=== PATIENT | male | born 1950 | race Caucasian/White ===

== ENCOUNTER 2017-04-05 05:24 | Inpatient (IN) | payer MEDICARE, OTHER ==
[2017-04-04 10:18] LABS: BASOPHILS 0.3 %; BASOPHILS ABSOLUTE 0.02 10/3/uL (0.0-0.16); EOSINOPHILS 0.7 %; EOSINOPHILS ABSOLUTE 0.04 10/3/uL (0.0-0.53); HEMATOCRIT 42.9 % (40.0-51.0); HEMOGLOBIN 14.5 g/dL (13.6-17.8); IMMATURE GRANULOCYTES 0.2 %; IMMATURE GRANULOCYTES ABSOLUTE 0.01 10/3/uL (0.0-0.11); LYMPHOCYTES 31.3 %; LYMPHOCYTES ABSOLUTE 1.85 10/3/uL (0.67-4.30); MEAN CORPUS HGB CONC 33.8 g/dL (32.0-36.0); MEAN CORPUSCULAR HEMOGLOB 30.4 pg (26.0-34.0); MEAN CORPUSCULAR VOLUME 89.9 fL (80-100); MEAN PLATELET VOLUME 9.7 fL (9.2-13.0); MONOCYTES 6.6 %; MONOCYTES ABSOLUTE 0.39 10/3/uL (0.21-1.20); NEUTROPHILS 60.9 %; NEUTROPHILS ABSOLUTE 3.61 10/3/uL (2.02-8.40); PLATELET COUNT 208 10/3/uL (150-400); RBC DISTRIBUTION WIDTH 12.8 % (12.0-16.0); RED CELL COUNT 4.77 10/6/uL (4.7-6.1); WHITE BLOOD CELLS 5.9 10/3/uL (4.5-10.5)
[2017-04-04 10:19] LABS: MANUAL DIFF NO %
[2017-04-04 10:28] LABS: PARTIAL THROMBO TIME 33.3 SEC (22.5-37.2)
[2017-04-04 10:31] LABS: % IRON SAT 23 % (20-50); A/G RATIO 1.1 (0.7-1.9); ALKALINE PHOSPHATASE 91 U/L (45-117); BUN (BLOOD UREA NITROGEN) 23 MG/DL (6-23); CALCIUM, SERUM 9.2 MG/DL (8.5-10.4); CHLORIDE, SERUM 108 MMOL/L (96-112); CO2 (CARBON DIOXIDE) 28 MMOL/L (24-34); GFR AFRICAN AMERICAN 66 ML/MIN (>=60); GFR NON AFRICAN AMERICAN 57 ML/MIN (>=60); GLOBULIN 3.5 G/DL (2.5-4.1); GLUCOSE, SERUM 105 MG/DL (60-99); IRON BINDING CAPACITY 317 MCG/DL (250-450); IRON, SERUM 72 MCG/DL (35-150); POTASSIUM, SERUM 4.3 MMOL/L (3.5-5.3); SGOT(AST) 11 U/L (5-40); SGPT(ALT) 20 U/L (5-65); SODIUM, SERUM 142 MMOL/L (135-148); TOTAL BILIRUBIN 0.6 MG/DL (0-1.2); TOTAL PROTEIN 7.5 G/DL (6.0-8.5)
[2017-04-04 11:02] LABS: INTERNATIONAL NORMAL RATI 1.1 UNITS (-); PROTIME (NOT ORD) 14.1 SEC (12.0-14.5)
[2017-04-04 11:22] LABS: ASCORBIC ACID (UR NOT ORDER) NEG (NEG); BILIRUBIN, URINE NEGATIVE (NEG); KETONE, URINE NEGATIVE (NEG); LEUKOCYTE ESTERASE(NOT OR NEG (NEG); WBC (NOT ORDERED) (RFLEX) 1 (0-5)
--- NOTE | ~2017-04-05 | DS ---
Discharge Summary [facility] [address] [place]. [address] NAME: FAREED PACHECO : 52 STATUS : DIS IN PAT#: [id number] AGE: 66 ADM/REG DATE : 04/05/17 MR#: [id number] REPORT SERV DATE: 04/19/17 DICTATED BY: ARMANDO PAIGE DATE: 04/19/17 REPORT STATUS : Draft TRANSCRIBED BY: MODChina DATE: 04/19/17 Data Collection from hospitalization DISCHARGE DIAGNOSES: 1. Aortic valve replacement due to aortic valve stenosis - critical. 2. Hypertension. 3. Hyperlipidemia. 4. History of cat scratch fever. 5. Former smoker. 6. Nonobstructive coronary artery disease. CONSULTATIONS: Jairo Coleman M.D. PROCEDURES PERFORMED: Aortic valve replacement with a 23 mm pericardial tissue valve, Camarena type, with extensive debridement of aortic anulus and plaque extending onto the anterior leaflet of the mitral valve, also transesophageal echocardiography on 04/05/2017. PATHOLOGY: Aortic valve leaflets valvulectomy - marked fibrosis with ectopic calcification (history of aortic stenosis). MEDICATIONS: Aspirin 81 mg daily, Lipitor 10 mg daily, Coreg 6.25 mg twice a day, [place] 5/325 one to two tablets every six hours as needed, Coumadin 3 mg every day at bedtime. CONDITION AT DISCHARGE: Stable. DISPOSITION: The patient was discharged home on a low-cholesterol, low-sodium, 1800-calorie cardiac/diabetic diet with activities as instructed. He would follow up with Dr. Jairo Coleman on 05/03/2017 and would follow up with co 05/08/2017. He would follow up in the [facility] Coumad[facility] 04/12/2017, and at cardiac rehab 05/17/2017. HOSPITAL COURSE: This is a 66-year-old man who had been referred by Dr. Jairo Coleman with known aortic valve stenosis becoming progressively worse and becoming progressively more symptomatic. Cardiac catheterization had demonstrated normal coronary arteries. Treatment options were discussed and it was elected to proceed with surgical intervention. He was admitted to the hospital at this time for further evaluation and treatment. Upon admission, he was taken to the operating room where he underwent the above-mentioned procedure. He tolerated this well. There were no complications. On postop day #1, he was seen by Dr. Jairo Coleman. He had some pleuritic pain and some gas pain. He had no edema. He has no shortness of breath. He was off all pressors, low-dose Coreg was going to be given. Statin and aspirin were continued. He would be placed on Coumadin for three months. His wounds looked okay. On the , his gastric issues had resolved. He had no complaints. Chest tubes and pacing wires were removed. He was transferred to the floor. INR level was 1.4. Coumadin was started. He remained in a sinus rhythm. The next day, discharge planning was performed. Creatinine level was 1.11, INR level was 1.4. He continued to do well. On 04/09/2017, he had no complaints. INR level was 1.7. He had no dyspnea or chest pain. He was in a sinus rhythm. Discharge instructions were given. Due to his improved and stable condition, he was discharged home with the above-stated Discharge Summary [address] [address] NAME: FAREED PACHECO : 52 STATUS : DIS IN PAT#: [id number] AGE: 66 ADM/REG DATE : 04/05/17 MR#: [id number] REPORT SERV DATE: 04/19/17 DICTATED BY: ARMANDO PAIGE DATE: 04/19/17 REPORT STATUS : Draft TRANSCRIBED BY: TRINIDAD DATE: 04/19/17 instructions. Information collected by: Maricruz Lovelace I submit the above information as my discharge summary. SEBASTIAN/TRINIDAD Armando Paige M.D. / [id number] CC: Irene Domingo M.D. Punit Tiku Bhutwala, M.D.
--- NOTE | ~2017-04-05 | OP ---
Record Of Operation [facility] [address] [place]. [address] NAME: FAREED PACHECO : 52 STATUS : ADM IN [facility]#: [id number] AGE: 66 ADM/REG DATE : 04/05/17 MR#: [id number] REPORT SERV DATE: 04/05/17 DICTATED BY: ARMANDO PAIGE DATE: 04/05/17 REPORT STATUS : Draft TRANSCRIBED BY: MODL DATE: 04/05/17 DATE OF PROCEDURE: 04/05/2017 PREOPERATIVE DIAGNOSIS: Critical aortic valve stenosis with normal coronary arteries and symptoms of congestive heart failure. POSTOPERATIVE DIAGNOSIS: Critical aortic valve stenosis with normal coronary arteries and symptoms of congestive heart failure. OPERATIVE PROCEDURE: Aortic valve replacement with a 23 mm pericardial tissue valve, Camarena type with extensive debridement of the aortic annulus and plaque extending onto the anterior leaflet of the mitral valve, also transesophageal echocardiography. OPERATIVE SURGEON: Armando Paige M.D. ANESTHESIA: General endotracheal anesthesia, AA. Chest tubes placed were two. Pacing wires, two on the right ventricle and two on the right atrium. PERTINENT HISTORY: The patient is a 66-year-old gentleman, referred by Dr. Jairo Coleman with known aortic valve stenosis, becoming progressively worse and becoming progressively more symptomatic. Cardiac catheterization had demonstrated normal coronary arteries. OPERATIVE FINDINGS: The patient did have a heavily calcified trileaflet postrheumatic aortic valve with stenosis and insufficiency. There was also extension of the calcification onto the anterior leaflet of the mitral valve. DESCRIPTION OF OPERATIVE PROCEDURE: The patient was taken to the operating room and placed in supine position. Anesthesia was obtained. The patient was prepped and draped in usual fashion. A transesophageal echocardiogram was performed, demonstrating the critical aortic stenosis. Only, mild mitral insufficiency was noted. A midline sternotomy incision was made. Sternum was divided. Heparin was infused. The patient was started on cardiopulmonary bypass. Left ventricular vent was placed for the right superior pulmonary vein. Retrograde and antegrade cardioplegic cannulas were placed. Cross-clamp was applied. Cardioplegia was infused in antegrade and retrograde fashion over a period of 15 minutes. A dmreet-lnhyl-ohcfaj aortotomy was then made, and the aortic valve was examined and found to be postrheumatic, trileaflet, heavily calcified. The valve was excised, and meticulous dissection was required to remove all the calcium and plaque from the aortic annulus. A sheet of calcium was then endarterectomized, removing it off the ventricular surface of the anterior leaflet of the mitral valve. A 23 mm sizer fit within the annulus of the aorta. 2 0 Ethibond pledgeted sutures were placed on the aortic valve annulus with the pledgets on the left ventricular side. These were passed through the sewing ring of a 23 mm pericardial tissue valve, Camarena type. The valve was seated on the annulus, and all sutures were tied with Cor-Knot. Aortotomy was closed in usual single-layered fashion with running 4-0 Prolene suture. Air was removed from left ventricle. Cross-clamp was removed. Good Record Of Operation [place] [id number] [facility] [place]. [address] NAME: FAREED PACHECO : 52 STATUS : ADM IN [facility]#: [id number] AGE: 66 ADM/REG DATE : 04/05/17 MR#: [id number] REPORT SERV DATE: 04/05/17 DICTATED BY: ARMANDO PAIGE DATE: 04/05/17 REPORT STATUS : Draft TRANSCRIBED BY: TRINIDAD DATE: 04/05/17 hemostasis was noted. Two pacing wires on the right ventricle and two on the right atrium and two chest tubes were placed. The patient was warmed to 36 centigrade, maintained a sinus rhythm. He was weaned from cardiopulmonary bypass with mild inotropic support. Protamine sulfate was infused. Hemostasis was adequate. Transesophageal echocardiogram was performed, demonstrating no further mitral insufficiency and normal function of the prosthetic aortic valve. The sternum was closed with four sternal cables. Soft tissue was closed in a manner as stated above. The patient tolerated the procedure well and taken back to the ICU in stable condition. COOKIE/TRINIDAD Armando Paige M.D. / [id number] CC: Armando Paige M.D.
[~2017-04-05 05:24] MED LIST: *DENIES; ASAB PO; LIPITOR10 PO; LORT7 PO
[2017-04-05 12:14] LABS: BE (BASE EXCESS) -4.5 MEQ/L (0 +/- 2.5); CARBOXYHEMOGLOBIN 0.3 % (0-3); HCO3 (ACTUAL BICARBONATE) 21.2 MEQ/L (23-27); HEMOBLOGIN CONTENT 12.1 G/DL (14-18); INSTRUMENT SERIAL # 11843; METHEMOGLOBIN 0.7 % (0-3); MODE SIMV; O2 CONTENT 16.8 VOL% (18-24); OPERATOR ID 32214; PCO2 (CO2 TENSION) 42 MMHG (35-45); PO2 (O2 TENSION) 154 MMHG (79-93); PRESSURE SUPPORT 0 cm.H2O; SAMPLE Arterial; TIDAL VOLUME 700 ML; pH 7.32 (7.37-7.43)
[2017-04-05 12:38] LABS: HEMATOCRIT 32.3 % (40.0-51.0); HEMOGLOBIN 11.2 g/dL (13.6-17.8)
[2017-04-05 12:39] LABS: PLATELET COUNT 134 10/3/uL (150-400)
[2017-04-05 12:48] LABS: INTERNATIONAL NORMAL RATI 1.5 UNITS (-); PARTIAL THROMBO TIME 37.1 SEC (22.5-37.2); PROTIME (NOT ORD) 17.7 SEC (12.0-14.5)
[2017-04-05 12:50] LABS: BUN (BLOOD UREA NITROGEN) 22 MG/DL (6-23); CHLORIDE, SERUM 115 MMOL/L (96-112); CO2 (CARBON DIOXIDE) 25 MMOL/L (24-34); CREATININE 1.18 MG/DL (0.70-1.30); GFR AFRICAN AMERICAN 75 ML/MIN (>=60); GFR NON AFRICAN AMERICAN 64 ML/MIN (>=60); GLUCOSE, SERUM 113 MG/DL (60-99); POTASSIUM, SERUM 4.1 MMOL/L (3.5-5.3); SODIUM, SERUM 148 MMOL/L (135-148)
[2017-04-05 15:15] LABS: BE (BASE EXCESS) -6.2 MEQ/L (0 +/- 2.5); CARBOXYHEMOGLOBIN 0.2 % (0-3); DEVICE NC; HCO3 (ACTUAL BICARBONATE) 18.6 MEQ/L (23-27); INSTRUMENT SERIAL # 11843; METHEMOGLOBIN 0.5 % (0-3); O2 CONTENT 16.7 VOL% (18-24); OPERATOR ID 32214; PCO2 (CO2 TENSION) 35 MMHG (35-45); PO2 (O2 TENSION) 67 MMHG (79-93); SAMPLE Arterial; pH 7.35 (7.37-7.43)
[2017-04-05 18:57] LABS: HEMATOCRIT 34.8 % (40.0-51.0); HEMOGLOBIN 11.9 g/dL (13.6-17.8)
[2017-04-05 19:08] LABS: BUN (BLOOD UREA NITROGEN) 22 MG/DL (6-23); CALCIUM, SERUM 8.1 MG/DL (8.5-10.4); CHLORIDE, SERUM 117 MMOL/L (96-112); CO2 (CARBON DIOXIDE) 24 MMOL/L (24-34); CREATININE 1.16 MG/DL (0.70-1.30); GFR AFRICAN AMERICAN 76 ML/MIN (>=60); GFR NON AFRICAN AMERICAN 66 ML/MIN (>=60); GLUCOSE, SERUM 103 MG/DL (60-99); POTASSIUM, SERUM 4.1 MMOL/L (3.5-5.3); SODIUM, SERUM 146 MMOL/L (135-148)
[2017-04-06 03:19] LABS: BASOPHILS 0 %; EOSINOPHILS 0 %; HEMOGLOBIN 11.9 g/dL (13.6-17.8); IMMATURE GRANULOCYTES 0.1 %; IMMATURE GRANULOCYTES ABSOLUTE 0.02 10/3/uL (0.0-0.11); LYMPHOCYTES 5.9 %; LYMPHOCYTES ABSOLUTE 0.83 10/3/uL (0.67-4.30); MANUAL DIFF NO %; MEAN CORPUSCULAR HEMOGLOB 30.5 pg (26.0-34.0); MEAN CORPUSCULAR VOLUME 89.7 fL (80-100); MEAN PLATELET VOLUME 10.4 fL (9.2-13.0); MONOCYTES 5.9 %; MONOCYTES ABSOLUTE 0.83 10/3/uL (0.21-1.20); NEUTROPHILS 88.1 %; NEUTROPHILS ABSOLUTE 12.27 10/3/uL (2.02-8.40); PLATELET COUNT 166 10/3/uL (150-400); RBC DISTRIBUTION WIDTH 13.6 % (12.0-16.0)
[2017-04-06 03:32] LABS: BUN (BLOOD UREA NITROGEN) 23 MG/DL (6-23); CALCIUM, SERUM 7.5 MG/DL (8.5-10.4); CHLORIDE, SERUM 114 MMOL/L (96-112); CO2 (CARBON DIOXIDE) 22 MMOL/L (24-34); CREATININE 1.28 MG/DL (0.70-1.30); GFR AFRICAN AMERICAN 68 ML/MIN (>=60); GFR NON AFRICAN AMERICAN 58 ML/MIN (>=60); POTASSIUM, SERUM 4.2 MMOL/L (3.5-5.3); SODIUM, SERUM 145 MMOL/L (135-148)
[2017-04-06 03:34] LABS: GLUCOSE, SERUM 129 MG/DL (60-99)
[2017-04-06 09:40] LABS: BUN (BLOOD UREA NITROGEN) 21 MG/DL (6-23); CALCIUM, SERUM 8.4 MG/DL (8.5-10.4); CHLORIDE, SERUM 113 MMOL/L (96-112); CO2 (CARBON DIOXIDE) 22 MMOL/L (24-34); CREATININE 1.34 MG/DL (0.70-1.30); GFR AFRICAN AMERICAN 64 ML/MIN (>=60); GFR NON AFRICAN AMERICAN 55 ML/MIN (>=60); POTASSIUM, SERUM 3.8 MMOL/L (3.5-5.3); SODIUM, SERUM 144 MMOL/L (135-148)
[2017-04-06 09:42] LABS: GLUCOSE, SERUM 87 MG/DL (60-99)
[2017-04-06 16:50] LABS: BASOPHILS 0.1 %; BASOPHILS ABSOLUTE 0.01 10/3/uL (0.0-0.16); EOSINOPHILS 0 %; HEMATOCRIT 33.5 % (40.0-51.0); HEMOGLOBIN 11.4 g/dL (13.6-17.8); IMMATURE GRANULOCYTES 0.3 %; IMMATURE GRANULOCYTES ABSOLUTE 0.04 10/3/uL (0.0-0.11); LYMPHOCYTES 13.4 %; MEAN CORPUSCULAR HEMOGLOB 30.7 pg (26.0-34.0); MEAN CORPUSCULAR VOLUME 90.3 fL (80-100); MEAN PLATELET VOLUME 10.3 fL (9.2-13.0); MONOCYTES 10.2 %; MONOCYTES ABSOLUTE 1.52 10/3/uL (0.21-1.20); PLATELET COUNT 129 10/3/uL (150-400); RBC DISTRIBUTION WIDTH 13.9 % (12.0-16.0); RED CELL COUNT 3.71 10/6/uL (4.7-6.1)
[2017-04-06 16:53] LABS: MANUAL DIFF NO %
[2017-04-06 17:02] LABS: BUN (BLOOD UREA NITROGEN) 23 MG/DL (6-23); CALCIUM, SERUM 8.4 MG/DL (8.5-10.4); CHLORIDE, SERUM 108 MMOL/L (96-112); CO2 (CARBON DIOXIDE) 24 MMOL/L (24-34); CREATININE 1.35 MG/DL (0.70-1.30); GFR AFRICAN AMERICAN 63 ML/MIN (>=60); GFR NON AFRICAN AMERICAN 55 ML/MIN (>=60); POTASSIUM, SERUM 4.5 MMOL/L (3.5-5.3); SODIUM, SERUM 138 MMOL/L (135-148)
[2017-04-06 17:03] LABS: GLUCOSE, SERUM 129 MG/DL (60-99)
[2017-04-07 04:37] LABS: CALCIUM, SERUM 8.3 MG/DL (8.5-10.4); CHLORIDE, SERUM 108 MMOL/L (96-112); CO2 (CARBON DIOXIDE) 28 MMOL/L (24-34); CREATININE 1.19 MG/DL (0.70-1.30); GFR AFRICAN AMERICAN 74 ML/MIN (>=60); GFR NON AFRICAN AMERICAN 64 ML/MIN (>=60); GLUCOSE, SERUM 132 MG/DL (60-99); POTASSIUM, SERUM 4.6 MMOL/L (3.5-5.3); SODIUM, SERUM 140 MMOL/L (135-148)
[2017-04-07 04:39] LABS: BUN (BLOOD UREA NITROGEN) 28 MG/DL (6-23)
[2017-04-07 04:42] LABS: BASOPHILS 0.1 %; BASOPHILS ABSOLUTE 0.01 10/3/uL (0.0-0.16); EOSINOPHILS 0 %; HEMATOCRIT 33.2 % (40.0-51.0); HEMOGLOBIN 11.2 g/dL (13.6-17.8); IMMATURE GRANULOCYTES 0.3 %; IMMATURE GRANULOCYTES ABSOLUTE 0.04 10/3/uL (0.0-0.11); LYMPHOCYTES 15.3 %; LYMPHOCYTES ABSOLUTE 2.01 10/3/uL (0.67-4.30); MANUAL DIFF NO %; MEAN CORPUS HGB CONC 33.7 g/dL (32.0-36.0); MEAN CORPUSCULAR HEMOGLOB 30.8 pg (26.0-34.0); MEAN CORPUSCULAR VOLUME 91.2 fL (80-100); MEAN PLATELET VOLUME 10.8 fL (9.2-13.0); MONOCYTES 9.4 %; MONOCYTES ABSOLUTE 1.24 10/3/uL (0.21-1.20); NEUTROPHILS 74.9 %; NEUTROPHILS ABSOLUTE 9.83 10/3/uL (2.02-8.40); PLATELET COUNT 115 10/3/uL (150-400); RBC DISTRIBUTION WIDTH 13.6 % (12.0-16.0); RED CELL COUNT 3.64 10/6/uL (4.7-6.1); WHITE BLOOD CELLS 13.1 10/3/uL (4.5-10.5)
[2017-04-07 05:55] LABS: INTERNATIONAL NORMAL RATI 1.4 UNITS (-); PROTIME (NOT ORD) 17.2 SEC (12.0-14.5)
[2017-04-08 04:46] LABS: BASOPHILS 0.1 %; BASOPHILS ABSOLUTE 0.01 10/3/uL (0.0-0.16); EOSINOPHILS 0.1 %; EOSINOPHILS ABSOLUTE 0.01 10/3/uL (0.0-0.53); HEMATOCRIT 31.9 % (40.0-51.0); HEMOGLOBIN 10.9 g/dL (13.6-17.8); IMMATURE GRANULOCYTES 0.3 %; IMMATURE GRANULOCYTES ABSOLUTE 0.03 10/3/uL (0.0-0.11); LYMPHOCYTES 12.1 %; LYMPHOCYTES ABSOLUTE 1.41 10/3/uL (0.67-4.30); MEAN CORPUS HGB CONC 34.2 g/dL (32.0-36.0); MEAN CORPUSCULAR HEMOGLOB 30.8 pg (26.0-34.0); MEAN CORPUSCULAR VOLUME 90.1 fL (80-100); MEAN PLATELET VOLUME 10.6 fL (9.2-13.0); MONOCYTES 9.2 %; MONOCYTES ABSOLUTE 1.07 10/3/uL (0.21-1.20); NEUTROPHILS 78.2 %; NEUTROPHILS ABSOLUTE 9.14 10/3/uL (2.02-8.40); PLATELET COUNT 108 10/3/uL (150-400); RBC DISTRIBUTION WIDTH 13.7 % (12.0-16.0); RED CELL COUNT 3.54 10/6/uL (4.7-6.1); WHITE BLOOD CELLS 11.7 10/3/uL (4.5-10.5)
[2017-04-08 04:47] LABS: INTERNATIONAL NORMAL RATI 1.4 UNITS (-); PROTIME (NOT ORD) 17.1 SEC (12.0-14.5)
[2017-04-08 04:48] LABS: MANUAL DIFF NO %
[2017-04-08 04:57] LABS: ALKALINE PHOSPHATASE 65 U/L (45-117); BUN (BLOOD UREA NITROGEN) 33 MG/DL (6-23); CALCIUM, SERUM 8.5 MG/DL (8.5-10.4); CHLORIDE, SERUM 106 MMOL/L (96-112); CO2 (CARBON DIOXIDE) 28 MMOL/L (24-34); CREATININE 1.11 MG/DL (0.70-1.30); DIRECT BILIRUBIN 0.1 MG/DL (0.0-0.4); GFR AFRICAN AMERICAN 80 ML/MIN (>=60); GFR NON AFRICAN AMERICAN 69 ML/MIN (>=60); GLUCOSE, SERUM 123 MG/DL (60-99); INDIRECT BILIRUBIN(NOT ORDER) 0.6 MG/DL (0.1-0.9); SGOT(AST) 17 U/L (5-40); SGPT(ALT) 13 U/L (5-65); SODIUM, SERUM 139 MMOL/L (135-148); TOTAL BILIRUBIN 0.7 MG/DL (0-1.2); TOTAL PROTEIN 6.1 G/DL (6.0-8.5)
[2017-04-09 04:14] LABS: BASOPHILS 0.1 %; BASOPHILS ABSOLUTE 0.01 10/3/uL (0.0-0.16); EOSINOPHILS 0.3 %; EOSINOPHILS ABSOLUTE 0.03 10/3/uL (0.0-0.53); HEMATOCRIT 30.4 % (40.0-51.0); HEMOGLOBIN 10.5 g/dL (13.6-17.8); IMMATURE GRANULOCYTES 0.2 %; IMMATURE GRANULOCYTES ABSOLUTE 0.02 10/3/uL (0.0-0.11); LYMPHOCYTES 16.3 %; LYMPHOCYTES ABSOLUTE 1.58 10/3/uL (0.67-4.30); MEAN CORPUS HGB CONC 34.5 g/dL (32.0-36.0); MEAN CORPUSCULAR HEMOGLOB 31.2 pg (26.0-34.0); MEAN CORPUSCULAR VOLUME 90.2 fL (80-100); MEAN PLATELET VOLUME 10.8 fL (9.2-13.0); MONOCYTES 8.7 %; MONOCYTES ABSOLUTE 0.85 10/3/uL (0.21-1.20); NEUTROPHILS 74.4 %; NEUTROPHILS ABSOLUTE 7.23 10/3/uL (2.02-8.40); PLATELET COUNT 123 10/3/uL (150-400); RBC DISTRIBUTION WIDTH 13.6 % (12.0-16.0); RED CELL COUNT 3.37 10/6/uL (4.7-6.1); WHITE BLOOD CELLS 9.7 10/3/uL (4.5-10.5)
[2017-04-09 04:15] LABS: MANUAL DIFF NO %
[2017-04-09 04:20] LABS: INTERNATIONAL NORMAL RATI 1.7 UNITS (-)
[2017-04-09 04:27] LABS: CALCIUM, SERUM 8.6 MG/DL (8.5-10.4); CHLORIDE, SERUM 106 MMOL/L (96-112); CO2 (CARBON DIOXIDE) 24 MMOL/L (24-34); CREATININE 1.12 MG/DL (0.70-1.30); GFR AFRICAN AMERICAN 79 ML/MIN (>=60); GFR NON AFRICAN AMERICAN 69 ML/MIN (>=60); GLUCOSE, SERUM 119 MG/DL (60-99); POTASSIUM, SERUM 4.2 MMOL/L (3.5-5.3); SODIUM, SERUM 140 MMOL/L (135-148)
[2017-04-09 04:28] LABS: BUN (BLOOD UREA NITROGEN) 29 MG/DL (6-23); PROTIME (NOT ORD) 19.9 SEC (12.0-14.5)
[2017-04-09] MEDS ORDERED: COREG6 PO (10:29)
[2017-04-09] MEDS ORDERED: COUMADIN3 MG PO (10:30)
[2017-04-09] MEDS ORDERED: NORCO1 TA1 PO (10:30)
== END 2017-04-09 13:42 | disposition home or self-care (01) | DRG 221 ==
LOC: SDC/OF 05:24 → CVICU 10:56 → 5NO 04-07 12:18
PROVIDERS: Thoracic Surgery (Cardiothoracic Vascular Surgery)
PROC: B246ZZ4 Ultrasonography of Right and Left Heart, Transesophageal (ICD-10-PCS; 2017-04-05)
PROC: 02RF08Z Replacement of Aortic Valve with Zooplastic Tissue, Open Approach (ICD-10-PCS; principal; 2017-04-05 07:30)
PROC: 5A1221Z Performance of Cardiac Output, Continuous (ICD-10-PCS; 2017-04-05 07:30)
DX: I06.0 Rheumatic aortic stenosis (principal); D69.6 Thrombocytopenia, unspecified; I10 Essential (primary) hypertension; E78.5 Hyperlipidemia, unspecified; Z87.891 Personal history of nicotine dependence; D64.9 Anemia, unspecified; Z79.82 Long term (current) use of aspirin
CPT/HCPCS: 36415; 71010; 71020; 80048; 80053; 80076; 81001; 82330; 82803; 82805; 82947; 82962; 83036; 83540; 83550; 83735; 84132; 84295; 85014; 85018; 85025; 85049; 85347; 85610; 85730; 86850; 86900; 86901; 86920; 87641; 88305; 88311; 93005; 93312; 93320; 93325; 94002; 94640; 94660; 94770; A9270-GY; C1713; C1725; C1769; C1894; J0690; J1644; J1940; J2150; J2250; J2370; J2405; J2440; J2720; J2765; J3010; J3475; J3480; P9045; P9047